=== PATIENT | female | born 1970 | race African-American/Black ===

== ENCOUNTER → 2016-11-22 | Outpatient (CLI) | payer SELFPAY ==
[~2016-11-22] MED LIST: NO MEDICATIONS
== END | disposition home or self-care (01) ==
LOC: CBAR 13:06
DX: Z01.818 Encounter for other preprocedural examination (principal); E66.01 Morbid (severe) obesity due to excess calories
CPT/HCPCS: G0463

== ENCOUNTER → 2016-12-19 | Outpatient (CLI) | payer SELFPAY | END | disposition home or self-care (01) | LOC: CBAR 13:04 | DX: Z01.812 Encounter for preprocedural laboratory examination (principal); E66.01 Morbid (severe) obesity due to excess calories | CPT/HCPCS: G0463 ==

== ENCOUNTER → 2017-01-17 | Outpatient (CLI) | payer SELFPAY | END | disposition home or self-care (01) | LOC: CBAR 06:17 | DX: Z01.818 Encounter for other preprocedural examination (principal); E66.01 Morbid (severe) obesity due to excess calories | CPT/HCPCS: G0463 ==

== ENCOUNTER → 2017-01-31 | Outpatient (CLI) | payer OTHER ==
--- NOTE | ~2017-01-31 | CR63 ---
[facility] A Service of [facility] RADIOLOGY TEXT RESULTS PATIENT: FARHANA MCKENZIE LOCATION: [facility] : 70 UNIT #: [id number] AGE: [address]: Tico Villagran III, MD SEX: F ORDER DR: [id number] [place] [id number] [facility]. [place], [place] [address] [id number] O MR#: [id number] Acc #: [id number] NAME: FARHANA MCKENZIE : 1970 SEX: F STUDY DATE/TIME: 01/31/2017 8:11 UNIT: [facility] ROOM: STUDY DESCRIPTION: CR Chest 2 View Attending Physician: Tico Villagran III, M.D. Referring Physician: Tico Villagran III, M.D. Ordering Physician: Tico Villagran III, M.D. Primary Care Physician: Raiza Sharpe M.D. MEDICAL IMAGING REPORT This report is preliminary unless electronic signature is present EXAM Chest 01/31/2017 HISTORY 46-year-old female patient, preop clearance laparoscopic adjustable gastric band placement with possible paraesophageal hernia repair. COMPARISON STUDIES Comparison none FINDINGS PA and lateral chest views show normal cardiac size and configuration. Hilar structures and mediastinal contours are preserved. Small oval nodule noted in the right upper lobe probable granuloma. In the absence of comparison chest films recommend followup conventional chest in 3 months. Bilateral lungs otherwise expanded and clear. IMPRESSION 7 mm nodule right upper lobe probable granuloma. Chest is otherwise negative. In the absence of comparison images recommend a 3-6 month followup conventional chest. Dictated by... Catrachito Norris M.D. THIS IS AN ELECTRONICALLY VERIFIED REPORT Catrachito Norris M.D. at 02/01/2017 3:01 PM [place]air TD: 01/31/2017 15:59 JOB #: [id number] MEDICAL IMAGING REPORT [facility] A Service of [facility] RADIOLOGY TEXT RESULTS PATIENT: FARHANA MCKENZIE LOCATION: [facility] #: [id number] : [birth year] UNIT #: [id number] AGE: [address]: Tico Villagran III, MD SEX: F ORDER DR: Page 1 of 1 COPY
--- NOTE | ~2017-01-31 | EKG ---
PATIENT: FARHANA MCKENZIE UNIT #: [id number] Ventricular Rate: 69 BPM Atrial Rate: 69 BPM P-R Interval: 156 ms QRS Duration: 82 ms Q-T Interval: 396 ms QTC Calculation(Bezet): 424 ms P [place]: 48 degrees Calculated R [place]: 22 degrees Calculated T [place]: 63 degrees Diagnosis Line: Normal sinus rhythm Diagnosis Line: Normal ECG Diagnosis Line: No previous ECGs available Diagnosis Line: Confirmed by MAAME GALICIA MD ([id number]) on 02/05/2017 Diagnosis Line: 2:31:56 PM INTERPRETING MD: GRAYSON ARROYO
--- NOTE | ~2017-01-31 | CR97 ---
[facility] A Service of [facility] RADIOLOGY TEXT RESULTS PATIENT: FARHANA MCKENZIE LOCATION: [facility] : 70 UNIT #: [id number] AGE: [address]: Tico Villagran III, MD SEX: F ORDER DR: [id number] [facility] [address]. [place], [place] [address] [id number] O MR#: [id number] Acc #: [id number] NAME: FARHANA MCKENZIE : 1970 SEX: F STUDY DATE/TIME: 01/31/2017 8:51 UNIT: [facility] ROOM: STUDY DESCRIPTION: CR Esophagram Attending Physician: Tico Villagran III, M.D. Referring Physician: Tico Villagran III, M.D. Ordering Physician: Tico Villagran III, M.D. Primary Care Physician: Raiza Sharpe M.D. MEDICAL IMAGING REPORT This report is preliminary unless electronic signature is present EXAM Esophagogram, 01/31/2017. INDICATIONS Preop exam for gastric band placement. FINDINGS Single contrast esophagram was performed. 32 images were obtained. Fluoro time is 0.4 minutes. The esophagus shows normal motility. No rings or strictures are identified. There is no hiatal hernia. IMPRESSION Normal single contrast esophagram. Dictated by... Yao Stack Jr., M.D. THIS IS AN ELECTRONICALLY VERIFIED REPORT Yao Stack Jr., M.D. at 02/03/2017 5:53 AM Octavio TD: 01/31/2017 20:01 JOB #: [id number] MEDICAL IMAGING REPORT Page 1 of 1 COPY
[2017-01-31 10:06] LABS: HEMATOCRIT 41.1 % (35.0-45.0); HEMOGLOBIN 13.3 gm/dL (12.0-16.0); MEAN CELL VOLUME 86.8 FL (83-96); MEAN CORPUSCULAR HEMOGLOBIN 28.1 PG (28-34); MEAN CORPUSCULAR HGB CONC 32.3 g/dL (30-36); MEAN PLATELET VOLUME 9.1 FL (6.5-11.5); RED BLOOD COUNT 4.73 X10e (3.90-5.30); RED CELL DISTRIBUTION WIDTH 13.4 % (11.0-15.5); WHITE BLOOD COUNT 5.1 X10e3 (4.0-10.5)
[2017-01-31 10:26] LABS: ALBUMIN SERUM 3.8 g/dL (3.5-5.0); BILIRUBIN,TOTAL 0.6 mg/dL (0.2-2.0); BUN/CREATININE RATIO 26.66; CALCIUM SERUM 8.9 mg/dL (8.4-10.2); CREATININE SERUM 0.3 mg/dL (0.6-1.4); GLOM FILT RATE Estimated 159.2 mL/min (>60); POTASSIUM 4.2 mmol/L (3.5-5.1); PROTEIN TOTAL SERUM 6.8 g/dL (6.0-8.3)
== END | disposition home or self-care (01) ==
LOC: CRAD 07:53 → CAMB 09:00
PROVIDERS: Surgery
DX: Z01.818 Encounter for other preprocedural examination (principal); K44.9 Diaphragmatic hernia without obstruction or gangrene; R91.1 Solitary pulmonary nodule
CPT/HCPCS: 36415; 71020; 74220; 80053; 80061; 84443; 85027; 93005

== ENCOUNTER → 2017-02-12 | Day surgery (SDC) | payer OTHER ==
--- NOTE | ~2017-02-12 | OR ---
Unit #: [id number] #: [id number] Patient: FARHANA MCKENZIE [id number] [facility] [address] [facility]. [place], [place] [address] [id number] O MR#: [id number] NAME: FARHANA MCKENZIE ROOM: Date of Procedure: 02/12/2017 Admission Date: 02/12/2017 Surgeon: Tico Villagran III, M.D. : 1970 Attending Physician: Tico Villagran III, M.D. Referring Physician: Tico Villagran III, M.D. Primary Care Physician: Raiza Sharpe M.D. OPERATIVE REPORT PREOPERATIVE DIAGNOSIS Chronic severe obesity. POSTOPERATIVE DIAGNOSIS Chronic severe obesity. SECONDARY DIAGNOSIS Anterior paraesophageal hernia. PROCEDURES PERFORMED Laparoscopic adjustable gastric banding (AP standard with low-profile port) and laparoscopic paraesophageal hernia repair. RHIT Dr. Parminder Whiteside. SPECIMENS None. COMPLICATIONS None apparent. ESTIMATED BLOOD LOSS Minimal. ANESTHESIA General endotracheal tube anesthesia. INDICATIONS FOR PROCEDURE This is a 46-year-old lady, who has chronic severe obesity with a BMI of 36 and associated comorbidities of sleep apnea. She has been through the bariatric program at [facility] and understands the risks and benefits of the procedure. DESCRIPTION OF PROCEDURE After consent was obtained, including the risks and benefits of slippage, erosion, port dysfunction, and possible failure of weight loss due to noncompliance, the patient was taken to the operating room and placed in the supine position. General anesthetic was administered and the abdomen was prepped and draped in standard surgical fashion. I began by making a 2 cm incision just above and to the left of the Unit #: [id number] #: [id number] Patient: FARHANA MCKENZIE umbilicus. I used a Visiport to enter the peritoneal cavity without any difficulty. C02 pneumoperitoneum was then established. Next, I placed a 5 mm port in the right upper quadrant, a 5 mm Jose liver retractor in the subxiphoid region to provide exposure of the gastroesophageal junction. Next, a 10 mm port was placed in the left upper quadrant and a 5 mm port was placed in the left lateral subcostal region. I began by performing an examination of the GE junction to evaluate for a hiatal hernia. We then scored the peritoneal attachments overlying the angle of His. I then opened up the clear space in the gastrohepatic ligament, and then using 2 blunt graspers, I identified the small fat pad crossing over the right crura. I swept the fat anterior to the crura off the crura and using the pars flaccida, I created a retrogastric tunnel where the blunt grasper exited at the angle of His. Once I had made this tunnel safely, I then inserted an Allergan AP band into the abdominal cavity. This adjustable gastric band was then place around the upper part of the stomach and fastened and buckled anteriorly. We then tacked the lateral fundus over the band to the proximal pouch with 2 interrupted 0 Ethibond sutures. I then used a third stitch to imbricate the excess anterior stomach by going from the lesser curvature up towards where the last stitch was placed. We then had excellent hemostasis. I removed the Jose liver retractor. We then removed the port tubing through the initial port incision. The rest of the ports were removed, and the pneumoperitoneum was released. I then left a small tail on the tubing. We then attached the port to the excess band tubing. We placed a piece of Prolene mesh along the back side of the port and used a Prolene stitch to anchor this mesh in place. We then trimmed the excess mesh so that just a small footprint of mesh was in place behind the port. I then inserted the tubing back into the abdominal cavity, and we placed the port into a small pocket that was made just inferior to where our initial port incision was made. The mesh was in direct contact with the fascia, and this will scar in place to hold the port in place. We then injected all the port sites with 0.25% plain Marcaine, and I reapproximated the skin edges with interrupted 4-0 Vicryl subcuticular sutures. Steri-strips were then applied. The patient tolerated the procedure without any problems and returned to the recovery room in stable condition. ADDENDUM After exposure of the GE junction, the patient was noted to have a cdflv-ap-sfrcue sized anterior paraesophageal hernia. I scored the phrenoesophageal ligament, reduced the hernia defect, and after identifying both the right and left crura, I reapproximated the defect with an interrupted 0 Ethibond szuxxz-ni-ihaxs suture. I then proceeded with the case as listed above. Dictated by... Tico Villagran III, M.D. VCL/yara TD: 02/13/2017 06:09 JOB #: [id number] CC: Raiza Sharpe M.D. Unit #: [id number] #: [id number] Patient: FARHANA MCKENZIE OPERATIVE REPORT Page 1 of 1 X Tico Villagran III, MD PROCEDURE OPERATIVE NOTE
--- NOTE | ~2017-02-12 | CR7 ---
[facility] A Service of [facility] & [facility] RADIOLOGY TEXT RESULTS PATIENT: FARHANA MCKENZIE LOCATION: [facility] : 70 UNIT #: [id number] AGE: [address]: Tico Villagran III, MD SEX: F ORDER DR: [id number] [facility] [address]. [place], [place] [address] [id number] O MR#: [id number] Acc #: [id number] NAME: FARHANA MCKENZIE : 1970 SEX: F STUDY DATE/TIME: 02/12/2017 9:19 UNIT: [facility] ROOM: STUDY DESCRIPTION: CR Abdomen Single AP View Attending Physician: Tico Villagran III, M.D. Referring Physician: Tico Villagran III, M.D. Ordering Physician: Tico Villagran III, M.D. Primary Care Physician: Raiza Sharpe M.D. MEDICAL IMAGING REPORT This report is preliminary unless electronic signature is present EXAM Portable KUB HISTORY Postop Lap-Band surgery. TECHNIQUE A single view of the abdomen was obtained. FINDINGS Postoperative changes of Lap-Band surgery are noted. The angle of band with respect to the long axis of the spine is 60 degrees. The bowel gas pattern is normal. No postoperative complications seen. IMPRESSION Satisfactory postoperative appearance. STAT * RESULT Dictated by... Yao Gil M.D. THIS IS AN ELECTRONICALLY VERIFIED REPORT Yao Gil M.D. at 02/12/2017 4:40 PM ARNIE/bill TD: 02/12/2017 09:37 JOB #: [id number] MEDICAL IMAGING REPORT Page 1 of 1 COPY
== END | disposition home or self-care (01) ==
LOC: CSUR 06:05
DX: E66.01 Morbid (severe) obesity due to excess calories (principal); Z68.36 Body mass index [BMI] 36.0-36.9, adult; K44.9 Diaphragmatic hernia without obstruction or gangrene; G47.33 Obstructive sleep apnea (adult) (pediatric)
CPT/HCPCS: 74000; 84703; C1781; J0330; J0690; J1650; J1885; J2250; J2405; J2710; J3010